=== PATIENT | male | born 1965 | race Caucasian/White ===

== ENCOUNTER → 2017-02-15 | Outpatient (CLI) | payer OTHER ==
[~2017-02-15] MED LIST: BACLOFEN10 MG PO; BENTYL20 MG PO; CARBAMAZEPINE100 MG PO; CLONAZEPAM1 MG PO; COLCRYS0.6 MG PO; DIAZEPAM5 MG PO; EFFEXOR75 MG PO; FENTANYL1 EAC4 TD; FLEXERIL10 MG PO; GABAPENTIN400 MG PO; GABAPENTIN800 MG PO; KLONOPIN0.5 M1 PO; MIRALAX17 GM PO; OXYCONTIN10 MG PO; OXYCONTIN30 MG PO; PRAVASTATIN SOD40 MG PO; PRILOSEC20 MG PO; PRILOSEC20.6 MG PO; PROTONIX40 MG PO; TRAMADOL HCL50 MG PO; TRAZODONE HCL150 MG PO; ULTRAM50 MG PO; VICODIN ES 71 TABLET PO; VITAMIN C1000 MG PO; VITAMIN D2000 UNIT PO; VITAMIN D35000 UNIT PO; XANAX0.5 MG PO; ZOFRAN ODT8 MG PO; ZOLOFT100 MG PO; ZYPREXA2.5 MG PO
== END | disposition home or self-care (01) ==
DX: M16.11 Unilateral primary osteoarthritis, right hip (principal); R26.2 Difficulty in walking, not elsewhere classified; M25.551 Pain in right hip; M25.651 Stiffness of right hip, not elsewhere classified; M62.81 Muscle weakness (generalized)
CPT/HCPCS: 97110 GP; 97150 GO; 97161 GP; 97165 GO; G8978 GP; G8979 GP; G8980 GP; G8987 GO; G8988 GO; G8989 GO

== ENCOUNTER 2017-03-20 22:03 | Inpatient (IN) | payer OTHER ==
[~2017-03-20] VITALS: Ht 177.8 cm; Wt 96.7 kg
[~2017-03-20 22:03] MED LIST changes: -BACLOFEN10 MG PO; +BACLOFEN20 MG PO; +DUCODYL5 MG PO; -KLONOPIN0.5 M1 PO; +KLONOPIN1 MG PO; +LORCET HD 10-31 EACH PO; +MOBIC15 MG PO; +STOOL SOFTENER100 MG PO; -XANAX0.5 MG PO; +XANAX1 MG PO
[2017-03-21] VITALS (7 sets, daily range): BP systolic 109–128; BP diastolic 63–75
[2017-03-21 10:42] LABS: HEMATOCRIT 37.1 % (38.0-50.0); MCV 89.2 FL (86-99)
[2017-03-22] VITALS (7 sets, daily range): BP systolic 104–119; BP diastolic 56–64
[2017-03-22 06:07] LABS: HEMATOCRIT 34.7 % (38.0-50.0); MCV 90.1 FL (86-99)
[2017-03-23 00:02] VITALS: BP 113/56
[2017-03-23 04:00] VITALS: BP 109/70
[2017-03-23 06:43] LABS: HEMATOCRIT 31.5 % (38.0-50.0); MCV 89.5 FL (86-99)
[2017-03-23 08:00] VITALS: BP 108/64
[2017-03-23] MEDS ORDERED: ENDOCET 5-3251 EACH PO (08:43)
[2017-03-23] MEDS ORDERED: ELIQUIS2.5 MG PO (08:43)
[2017-03-23] MEDS ORDERED: OXYCONTIN10 MG PO (08:43)
[2017-03-23 12:00] VITALS: BP 112/58
== END 2017-03-23 14:24 | disposition home health service (06) | DRG 470 ==
LOC: 2SOUTH → ENRESERV 22:03 → 2SOUTH 03-21 05:34 → 3WEST 03-21 05:34 → 2SOUTH 03-21 15:06 → 3WEST 03-23 14:24
PROVIDERS: Orthopaedic Surgery; Physician Assistant
PROC: 0SR901A Replacement of Right Hip Joint with Metal Synthetic Substitute, Uncemented, Open Approach (ICD-10-PCS; principal; 2017-03-21)
DX: M16.11 Unilateral primary osteoarthritis, right hip (principal); F33.9 Major depressive disorder, recurrent, unspecified; K59.09 Other constipation; F41.9 Anxiety disorder, unspecified; G89.29 Other chronic pain; M81.0 Age-related osteoporosis without current pathological fracture; F17.210 Nicotine dependence, cigarettes, uncomplicated; Z88.2 Allergy status to sulfonamides; Z88.6 Allergy status to analgesic agent; Z88.5 Allergy status to narcotic agent
CPT/HCPCS: 85014; 85018; 94799; 97530 GP; J0131; J0690; J1100; J2250; J2405; J3010; J7050; J7120; S0020